=== PATIENT | male | born 1950 | race Asian ===

== ENCOUNTER → 2024-09-05 | Outpatient (CLI) | payer OTHER, MEDICAID, SELFPAY ==
--- NOTE | 2024-09-05 11:00 | XR_ITS ---
Examination: CT chest, without intravenous contrast. Sagittal and coronal 2-D reconstructions. Exam date and time: September 05, 2024 1125 hrs. Indications: Smoking history 50+ years CTDI:vol (mGy) 10.4 DLP: (mGycm) 410 Technique: Multiple 3.0 mm axial sections of the chest to been obtained. Bone and lung density settings are obtained. Sagittal and coronal 2-D reconstructions have been obtained. Low dose protocols were performed. One or more of the following dose reduction techniques were used; automated exposure control, adjustment of the mA and/or KV according to patient size, use of iterative reconstruction technique. 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, axial image 124, transverse dimension 3.4 cm No paratracheal tracheobronchial or bronchopulmonary adenopathy 3 mm pleural-based pulmonary nodule left upper lobe image 22 15 mm pulmonary nodule right upper lobe image 26 3 mm pulmonary nodule right lower lobe image 46 2 mm pulmonary nodule lingular segment image 54 4 mm pulmonary nodule left lower lobe image 68 No visualized liver or splenic lesion Contracted gallbladder No pancreatic or adrenal mass Impression: Focal aneurysmal dilatation thoracic aortic arch, recommend CTA thoracic aorta post contrast follow-up Multiple noncalcified pulmonary nodules as above, with this study as baseline recommend 6 month follow-up CT chest without contrast
== END | disposition home or self-care (01) ==
PROVIDERS: PCP Physician Assistant; Referring Provider Physician Assistant; Visit Provider Physician Assistant
DX: I71.22 Aneurysm of the aortic arch, without rupture (principal); R91.8 Other nonspecific abnormal finding of lung field; F17.210 Nicotine dependence, cigarettes, uncomplicated
CPT/HCPCS: 71271

== ENCOUNTER → 2024-10-21 | Outpatient (CLI) | payer OTHER, MEDICAID, SELFPAY ==
[2024-10-20 15:49] LABS: Anion Gap 5 (7-16); BUN/Creatinine Ratio 13 Ratio (12-20); Blood Urea Nitrogen 14 mg/dL (9-23); Calcium 8.9 mg/dL (8.3-10.6); Carbon Dioxide 27.8 mMol/L (20.0-31.0); Chloride 111 mMol/L (98-107); Creatinine (Component) 1.1 mg/dL (0.6-1.3); Glucose 97 mg/dL (74-106); Osmolality,Calculated 287 (275-295); Potassium 4.6 mMol/L (3.4-5.1); Sodium 144 mMol/L (136-145); eGFR > 60 See Note
--- NOTE | 2024-10-21 15:30 | XR_ITS ---
Examination: CTA chest with intravenous contrast 2-D reconstructions 3-D reconstructions, vascular Date and time of exam: October 21, 2024 1538 hrs. Indications: Smoking history years with shortness of breath CTDI: vol (mGy) 19.3 DLP: (mGycm) 362 Technique: Multiple axial sections of the thorax have been obtained. 3 mm slice thickness, from below the hemidiaphragms to above the apices of the lungs. Mediastinal and lung density settings have been obtained. 2-D sagittal and coronal reconstructions. 3-D angiographic renderings, 3-D volume renderings, 3D post processing, vascular maximum intensity projections obtained. Contrast administered is 100 cc [id number]. Low dose protocols were performed. One or more of the following dose reduction techniques were used; automated exposure control, adjustment of the mA and/or KV according to patient size, use of iterative reconstruction technique. Findings: Focal mild aneurysmal dilatation thoracic aortic arch Pulmonary artery segments are not enlarged No pulmonary artery emboli Mild hilar lymphadenopathy 14 mm pulmonary nodule lobular margins right upper lobe image 76 No pneumonia or pulmonary edema No visualized liver or splenic lesion No gallstones No pancreatic mass Impression: Negative for pulmonary artery emboli 14 mm pulmonary nodule right upper lobe, differential would include lung carcinoma
== END | disposition home or self-care (01) ==
LOC: CCTX 15:11
PROVIDERS: PCP Physician Assistant; Referring Provider Physician Assistant; Visit Provider Physician Assistant
DX: R91.1 Solitary pulmonary nodule (principal); I72.2 Aneurysm of renal artery
CPT/HCPCS: 36415; 71275; 80048; A4649; Q9967

== ENCOUNTER → 2025-03-16 | Outpatient (CLI) | payer OTHER, MEDICAID, SELFPAY ==
--- NOTE | 2025-03-16 13:00 | XR_ITS ---
Examination: Carotid arterial duplex scan, ultrasound. Date and time of exam: March 16, 2025 1315 hours INDICATIONS: Dizziness episodes beginning several months ago Technique: Multiple sonographic images have been obtained of the carotid arteries and vertebral arteries, B-mode/grayscale imaging and Doppler spectral analysis and color flow Peak systolic and diastolic velocities have been recorded. Systolic diastolic ratios have been calculated. Findings: Right peak systolic velocities: Distal internal carotid artery peak systolic velocity is 1.2 M/sec Proximal internal carotid artery peak systolic velocity is 0.7 M/sec Carotid bifurcation peak systolic velocity is 0.8 M/sec External carotid artery peak systolic velocity is 0.7 M/sec Vertebral artery flow is antegrade. Left peak systolic velocities: Distal internal carotid artery peak systolic velocity is 0.9 M/sec Proximal internal carotid artery peak systolic velocity is 0.8 M/sec Carotid bifurcation peak systolic velocity is 0.9 M/sec External carotid artery peak systolic velocity is 0.9 M/sec Vertebral artery flow is antegrade Doppler waveform analysis demonstrates no spectral broadening Impression: Right internal carotid artery demonstrates 0-10% stenosis. Left internal carotid artery demonstrates 0-10% stenosis.
== END | disposition home or self-care (01) ==
PROVIDERS: PCP Physician Assistant; Referring Provider Physician Assistant; Visit Provider Physician Assistant
DX: R42 Dizziness and giddiness (principal)
CPT/HCPCS: 93880